=== PATIENT | female | born 1990 | race African-American/Black ===

== ENCOUNTER 2017-07-13 22:03 | Emergency (ER) | payer MEDICAID ==
[~2017-07-13] VITALS: Ht 167.6 cm; Wt 54.4 kg
[~2017-07-13 22:03] MED LIST: AMOXICILLIN PO; AMOXICILLIN500 M1 PO; IBUPROFEN PO; NAPROXEN PO; PEN-VEE K PO
== END 2017-07-13 23:10 | disposition home or self-care (01) ==
LOC: CFTX 22:03 → CED 22:03 → CFTX 23:06
DX: J30.9 Allergic rhinitis, unspecified (principal)
CPT/HCPCS: 99283